=== PATIENT | male | born 2000 | race Caucasian/White ===

== ENCOUNTER 2021-03-15 22:06 | Inpatient (IN) ==
--- NOTE | 2021-03-15 22:24 | Emergency Department Note ---
History of Present Illness General Chief complaint: Alcohol Intoxication Stated complaint: ALCOHOL INTOXICATION History of Present Illness This 20-year-old presents to the ER complaining of overdose of alcohol and benzos reportedly Location: Generalized Quality: Intoxicated Severity: Moderate Duration: Tonight Timing: Tonight Context: Patient was passed out of at the [employer] [facility] and EMS was summoned Modifying factors: better with nothing; worse with nothing Patient is passed out and history is obtained from nursing and EMS. Apparently the patient stated that he took a lot of benzos and was drinking alcohol tonight. No one else has any other information to offer. Patient is passed out and there is no family or friends around. Home Medications Medication Instructions Recorded Confirmed Type Unobtainable 03/15/21 03/15/21 History Allergies Allergy/AdvReac Type Severity Reaction Status Date / Time Unable to Assess Allergy Verified 03/15/21 22:30 Review of Systems Unobtainable due to reduced consciousness Physical Exam Vital Signs Vital Signs - 24 hr 03/15/21 22:11 03/15/21 22:15 03/15/21 22:26 Pulse Rate 99 H 102 H Pulse Rate from SpO2 Sensor 99 H Respiratory Rate 24 27 H Respiratory Effort / Characteristics Non-Labored Spontaneous Respiratory Depth Normal Blood Pressure 108/51 L 108/51 L Blood Pressure Mean 70 70 Pulse Oximetry 93 96 96 Oxygen Delivery Method Room Air Room Air Oxygen Flow Rate Sepsis New/Unexplained Change in Mental Status No Sepsis Action Taken by Nursing No Action Required 03/15/21 22:30 03/15/21 23:00 03/15/21 23:16 Pulse Rate 97 H 90 Pulse Rate from SpO2 Sensor 95 H 90 Respiratory Rate 24 24 Respiratory Effort / Characteristics Respiratory Depth Blood Pressure 104/55 L 105/51 L Blood Pressure Mean 71 69 Pulse Oximetry 93 94 94 Oxygen Delivery Method Room Air Room Air Room Air Oxygen Flow Rate Sepsis New/Unexplained Change in Mental Status Sepsis Action Taken by Nursing 03/15/21 23:30 03/16/21 00:00 03/16/21 00:30 Pulse Rate 85 95 H 91 H Pulse Rate from SpO2 Sensor 85 94 H 91 H Respiratory Rate 22 17 16 Respiratory Effort / Characteristics Respiratory Depth Blood Pressure 111/60 117/63 131/89 Blood Pressure Mean 77 81 103 Pulse Oximetry 96 97 100 Oxygen Delivery Method Room Air Room Air Room Air Oxygen Flow Rate Sepsis New/Unexplained Change in Mental Status Sepsis Action Taken by Nursing 03/16/21 01:00 03/16/21 01:31 03/16/21 02:00 Pulse Rate 102 H 114 H 84 Pulse Rate from SpO2 Sensor 103 H 114 H 84 Respiratory Rate 18 23 20 Respiratory Effort / Characteristics Respiratory Depth Blood Pressure 150/91 H 146/64 H 125/69 Blood Pressure Mean 110 91 87 Pulse Oximetry 100 98 97 Oxygen Delivery Method Room Air Room Air Nasal Cannula Oxygen Flow Rate 2 Sepsis New/Unexplained Change in Mental Status Sepsis Action Taken by Nursing VITALS: Vitals are noted on the nurse's note and reviewed by myself. Vital signs stable. GENERAL: White male passed out moans to sternal rub, in no acute distress, nondiaphoretic, well-developed well-nourished. SKIN: The skin was without rashes, erythema, edema, or bruising. There is no tenting of the skin. Capillary reflex less than 2 seconds. HEAD: Normocephalic atraumatic. EARS: External auditory canals clear, tympanic membranes pearly burks without erythema or effusion bilaterally. EYES: Pupils equal round and reactive to light and accommodation. Conjunctivae with injection, sclerae without icterus. Extraocular movements intact. NOSE: Patent, turbinates without inflammation or discharge. No sinus tend erness. MOUTH: Mucous membranes moist. Pharynx without erythema or exudate. Uvula midline. Airway patent. Tongue does not deviate. NECK: Supple without nuchal rigidity. No lymphadenopathy. No thyromegaly. Cervical spine is nontender. No JVD. HEART: Regular rate and rhythm without murmurs gallops or rubs. LUNGS: Clear to auscultation bilaterally without wheezes, rales or rhonchi. No retractions or accessory muscle use. ABDOMEN: Positive bowel sounds x 4. Normal tympanic percussion. Soft, nontender, without masses or organomegaly. Edwards sign negative. No guarding or rebound tenderness. No CVA tenderness MUSCULOSKELETAL: No muscle atrophy, erythema, or edema noted. NEURO: Patient was passed out who moans to sternal rub.. No focal neurological deficits. Course Administered Medications Sodium Chloride (Nss 1000ml) 1,000 mls @ 999 mls/hr IV .Q1H1M ONE Stop: 03/16/21 05:29 Last Admin: 03/16/21 04:43 Dose: 999 mls/hr Documented by: [id number] Discontinued Medications Sodium Chloride (Nss 1000ml) 1,000 mls @ 999 mls/hr IV .Q1H1M ONE Stop: 03/16/21 04:21 Last Infusion: 03/16/21 04:40 Dose: 0 mls/hr Documented by: [id number] Admin: 03/16/21 03:33 Dose: 999 mls/hr Documented by: [id number] Medical Decision Making Medical Records Attestation: I reviewed the patient's medical records. Home Medications Current Medication List: was personally reviewed by me Laboratory Data Attestation: I reviewed the patient's lab results. Result diagrams: 03/15/21 22:39 03/15/21 22:39 Lab Results 03/15/21 03/15/21 03/15/21 Range/Units 22:39 22:39 22:39 WBC 7.30 (4.8-10.8) K/uL RBC 4.76 (4.7-6.1) M/uL Hgb 15.2 (14.0-18.0) g/dL Hct 44.1 (42-52) % MCV 92.6 (80-100) fL MCH 31.9 (25-34) pg MCHC 34.5 (32-36) g/dL RDW Std Deviation 43.9 (36.4-46.3) fL RDW Coeff of Dejuan 12.9 (11.5-14.5) % Plt Count 336 (130-400) K/uL MPV 9.9 (7.4-10.4) fL Immature Gran % (Auto) 0.1 % Neut % (Auto) 53.4 % Lymph % (Auto) 37.8 % [place] % (Auto) 8.4 % Eos % (Auto) 0.0 % Baso % (Auto) 0.3 % Neut # (Auto) 3.90 (1.4-6.5) K/uL Lymph # (Auto) 2.76 (1.2-3.4) K/uL [place] # (Auto) 0.61 H (0.11-0.59) K/uL Eos # (Auto) 0.00 (0-0.5) K/uL Baso # (Auto) 0.02 (0-0.2) K/uL Immature Gran # (Auto) 0.01 (0.00-0.02) K/uL Sodium 142 (136-145) mmol/L Potassium 3.7 (3.5-5.1) mmol/L Chloride 107 (98-107) mmol/L Carbon Dioxide 22 (21-32) mmol/L Anion Gap 14.0 H (3-11) BUN 10 (7-18) mg/dl Creatinine 1.10 (0.6-1.4) mg/dl Est Cr Clr Drug Dosing Not Reportable Est GFR ( Amer) 111.4 ml/min Est GFR (Non-Af Amer) 96.1 ml/min BUN/Creatinine Ratio 9.4 L (10-20) Glucose 88 (70-99) mg/dl Calcium 9.3 (8.5-10.1) mg/dl Total Bilirubin 0.5 (0.2-1) mg/dl AST 46 H (15-37) U/L ALT 85 H (12-78) U/L Alkaline Phosphatase 91 (45-117) U/L Total Protein 8.2 (6.4-8.2) gm/dl Albumin 4.1 (3.4-5.0) gm/dl Globulin 4.1 H (2.5-4.0) gm/dl Albumin/Globulin Ratio 1.0 (0.9-2) Salicylates (2.8-20) mg/dl Urine Opiates Screen (Neg) Ur Methadone, Qual (Neg) Acetaminophen (10-30) ug/ml Urine Barbiturates (Neg) Ur Phencyclidine (PCP) (Neg) U Amphetamin/Meth Scrn (Neg) MDMA (Ecstasy) Screen (Neg) U Benzodiazepines Scrn (Neg) Ur Cocaine Metabolite (Neg) U Marijuana (THC) Screen (Neg) Ethyl Alcohol mg/dL 183.3 H (0-3) mg/dl COVID-19 Eval Order SARS-CoV-2 (PCR) (Negative) 03/15/21 03/16/21 03/16/21 Range/Units 22:39 02:20 02:20 WBC (4.8-10.8) K/uL RBC (4.7-6.1) M/uL Hgb (14.0-18.0) g/dL Hct (42-52) % MCV (80-100) fL MCH (25-34) pg MCHC (32-36) g/dL RDW Std Deviation (36.4-46.3) fL RDW Coeff of Dejuan (11.5-14.5) % Plt Count (130-400) K/uL MPV (7.4-10.4) fL Immature Gran % (Auto) % Neut % (Auto) % Lymph % (Auto) % [place] % (Auto) % Eos % (Auto) % Baso % (Auto) % Neut # (Auto) (1.4-6.5) K/uL Lymph # (Auto) (1.2-3.4) K/uL [place] # (Auto) (0.11-0.59) K/uL Eos # (Auto) (0-0.5) K/uL Baso # (Auto) (0-0.2) K/uL Immature Gran # (Auto) (0.00-0.02) K/uL Sodium (136-145) mmol/L Potassium (3.5-5.1) mmol/L Chloride (98-107) mmol/L Carbon Dioxide (21-32) mmol/L Anion Gap (3-11) BUN (7-18) mg/dl Creatinine (0.6-1.4) mg/dl Est Cr Clr Drug Dosing Est GFR ( Amer) ml/min Est GFR (Non-Af Amer) ml/min BUN/Creatinine Ratio (10-20) Glucose (70-99) mg/dl Calcium (8.5-10.1) mg/dl Total Bilirubin (0.2-1) mg/dl AST (15-37) U/L ALT (12-78) U/L Alkaline Phosphatase (45-117) U/L Total Protein (6.4-8.2) gm/dl Albumin (3.4-5.0) gm/dl Globulin (2.5-4.0) gm/dl Albumin/Globulin Ratio (0.9-2) Salicylates < 1.7 L (2.8-20) mg/dl Urine Opiates Screen (Neg) Ur Methadone, Qual (Neg) Acetaminophen < 2 L (10-30) ug/ml Urine Barbiturates (Neg) Ur Phencyclidine (PCP) (Neg) U Amphetamin/Meth Scrn (Neg) MDMA (Ecstasy) Screen (Neg) U Benzodiazepines Scrn (Neg) Ur Cocaine Metabolite (Neg) U Marijuana (THC) Screen (Neg) Ethyl Alcohol mg/dL (0-3) mg/dl COVID-19 Eval Order Covid19 at [facility] SARS-CoV-2 (PCR) NEGATIVE (Negative) 03/16/21 Range/Units 04:26 WBC (4.8-10.8) K/uL RBC (4.7-6.1) M/uL Hgb (14.0-18.0) g/dL Hct (42-52) % MCV (80-100) fL MCH (25-34) pg MCHC (32-36) g/dL RDW Std Deviation (36.4-46.3) fL RDW Coeff of Dejuan (11.5-14.5) % Plt Count (130-400) K/uL MPV (7.4-10.4) fL Immature Gran % (Auto) % Neut % (Auto) % Lymph % (Auto) % [place] % (Auto) % Eos % (Auto) % Baso % (Auto) % Neut # (Auto) (1.4-6.5) K/uL Lymph # (Auto) (1.2-3.4) K/uL [place] # (Auto) (0.11-0.59) K/uL Eos # (Auto) (0-0.5) K/uL Baso # (Auto) (0-0.2) K/uL Immature Gran # (Auto) (0.00-0.02) K/uL Sodium (136-145) mmol/L Potassium (3.5-5.1) mmol/L Chloride (98-107) mmol/L Carbon Dioxide (21-32) mmol/L Anion Gap (3-11) BUN (7-18) mg/dl Creatinine (0.6-1.4) mg/dl Est Cr Clr Drug Dosing Est GFR ( Amer) ml/min Est GFR (Non-Af Amer) ml/min BUN/Creatinine Ratio (10-20) Glucose (70-99) mg/dl Calcium (8.5-10.1) mg/dl Total Bilirubin (0.2-1) mg/dl AST (15-37) U/L ALT (12-78) U/L Alkaline Phosphatase (45-117) U/L Total Protein (6.4-8.2) gm/dl Albumin (3.4-5.0) gm/dl Globulin (2.5-4.0) gm/dl Albumin/Globulin Ratio (0.9-2) Salicylates (2.8-20) mg/dl Urine Opiates Screen Neg (Neg) Ur Methadone, Qual Neg (Neg) Acetaminophen (10-30) ug/ml Urine Barbiturates Neg (Neg) Ur Phencyclidine (PCP) Neg (Neg) U Amphetamin/Meth Scrn Neg (Neg) MDMA (Ecstasy) Screen Neg (Neg) U Benzodiazepines Scrn Pos H (Neg) Ur Cocaine Metabolite Pos H (Neg) U Marijuana (THC) Screen Neg (Neg) Ethyl Alcohol mg/dL (0-3) mg/dl COVID-19 Eval Order SARS-CoV-2 (PCR) (Negative) Imaging Data Attestation: I personally reviewed and interpreted this imaging study as follows: MDM Narrative Prior records/ancillary studies reviewed. Triage Nursing notes reviewed. Additional history obtained from nursing. The patient's history was concerning for altered mental status and probable overdose. Differential diagnosis: Etiologies such as toxicologic, infection, hypoglycemia, electrolyte abnormalities, cardiac sources, intracerebral event, neurologic, as well as others were entertained. Physical examination: The patient had altered sensorium. No trauma noted. ER treatment provided: IV NSS 1 L bolus An order was placed for continuous cardiac monitoring. The monitor shows a rate of 60-1 50 with a sinus rhythm. On reassessment the patient was stable and improving. Diagnostic interpretation by me: The electrocardiogram was negative for pathologic change. There was no QRS widening or interval prolongation. Normal sinus, normal intervals, no acute ST- T wave changes. Impression normal sinus interpreted by myself Order for overdose I think arrhythmia is unlikely. EKG shows normal sinus rhythm with no interval abnormalities such as QT prolongation or WPW. There are no findings to suggest Brugada syndrome. Cardiac monitoring in the emergency department reveals no tachycardic or bradycardic dysrhythmia. Hypertrophic cardiomyopathy was considered but there are no clear historical elements pointing toward this. EKG is not suggestive. The QRS voltage is not extremely large and there are no suggestive Q waves. The labs revealed no leukocytosis, negative Tylenol and salicylate Alcohol 183 Imaging studies: Chest x-ray with no acute consolidation, pneumothorax or free air per my interpretation Consultation: A consultation was placed with Poison Control. The recommendations were for observation and supportive care A consultation was placed with the hospitalist. The case was discussed and diagnostics were reviewed. The patient was evaluated in the ER for further treatment. This appears to be consistent with an isolated overdose. Patient had suicidal thoughts. He states this is why he took the medicine. Medicine was consulted. He will be evaluated by the hospitalist. manager of selection and assessment was notified. By the evaluation outlined above emergent etiologies such as infection, hypoglycemia, electrolyte abnormalities, cardiac sources, intracerebral event, neurologic,as well as others were deemed relatively unlikely. Patient apparently made statements to the nurse that he had thoughts of hurting himself and myself. The pt informed about the findings as listed above. All questions were answered and pleased with the treatment. The chart was completed utilizing [employer] Speech voice recognition software. Grammatical errors, random word insertions, pronoun errors, and incomplete sentences are an occassional consequence of this system due to software limitations, ambient noise, and hardware issues. Any formal questions or concerns about the content, text, or information contained within the body of this dictation should be directly addressed to the physician assisted living assistant for clarification. Impression & Plan Alcoholic intoxication, Benzodiazepine overdose, Suicidal thoughts Discharge Plan Visit Data Chief Complaint: Alcohol Intoxication Stated Complaint: ALCOHOL INTOXICATION ED Provider: Guillermo Perla ED Midlevel Provider: Jael Sanchez Discharge Problem: Alcoholic intoxication, Benzodiazepine overdose, Suicidal thoughts Patient Disposition: Admitted As Inpatient Condition: Good Forms Stand Alone Forms: NuORDER Prescriptions Prescriptions: No Action Unobtainable RF: 0 Referrals Referrals: PCP,NO [Primary Care Provider] - Discharge Problem: Alcoholic intoxication Qualifiers: Complication of substance-induced condition: uncomplicated Qualified Code(s): F10.920 - Alcohol use, unspecified with intoxication, uncomplicated
[2021-03-15 22:50] LABS: Basophils # (auto) 0.02 K/uL (0-0.2); Basophils % (auto) 0.3 %; Hematocrit (blood only) 44.1 % (42-52); Hemoglobin 15.2 g/dL (14.0-18.0); Immature Granulocytes # (auto) 0.01 K/uL (0.00-0.02); Immature Granulocytes % (auto) 0.1 %; Lymphocytes # (auto) 2.76 K/uL (1.2-3.4); Lymphocytes % (auto) 37.8 %; Mean Corpuscular Hemoglobin 31.9 pg (25-34); Mean Corpuscular Hgb Conc 34.5 g/dL (32-36); Mean Corpuscular Volume 92.6 fL (80-100); Mean Platelet Volume 9.9 fL (7.4-10.4); Monocytes # (auto) 0.61 K/uL (0.11-0.59); Monocytes % (auto) 8.4 %; Neutrophils % (auto) 53.4 %; Platelet Count 336 K/uL (130-400); RDW Coefficient of Variation 12.9 % (11.5-14.5); RDW Standard Deviation 43.9 fL (36.4-46.3); Red Blood Count 4.76 M/uL (4.7-6.1)
[2021-03-15 23:10] LABS: Alanine Aminotransferase 85 U/L (12-78); Albumin Level 4.1 gm/dl (3.4-5.0); Aspartate Aminotransferase 46 U/L (15-37); BUN Creatinine Ratio 9.4 (10-20); Blood Urea Nitrogen 10 mg/dl (7-18); Calcium 9.3 mg/dl (8.5-10.1); Carbon Dioxide 22 mmol/L (21-32); Chloride 107 mmol/L (98-107); Est GFR (African American) 111.4 ml/min; Est GFR (Non-African American) 96.1 ml/min; Glucose 88 mg/dl (70-99); Potassium 3.7 mmol/L (3.5-5.1); Sodium 142 mmol/L (136-145)
[2021-03-15 23:13] LABS: Alkaline Phosphatase 91 U/L (45-117); Bilirubin,Total 0.5 mg/dl (0.2-1); Globulin 4.1 gm/dl (2.5-4.0); Total Protein 8.2 gm/dl (6.4-8.2)
[2021-03-15 23:28] LABS: Acetaminophen < 2 ug/ml (10-30); Salicylate < 1.7 mg/dl (2.8-20)
[2021-03-16] MEDS ORDERED: SODIUM CHLORIDE 0.9% 1000ML 1,000 ML IV ONE ×2 (03:21→04:29)
[2021-03-16 04:56] LABS: Amphetamines+Metham, Urine Neg (Neg); Barbiturates, Urine Neg (Neg); Benzodiazepine, Urine Pos (Neg); Cocaine, Urine Pos (Neg); MDMA (Ecstacy), Urine Neg (Neg); Methadone, Urine Neg (Neg); Opiate, Urine Neg (Neg); Phencyclidine, Urine Neg (Neg)
--- NOTE | 2021-03-16 05:46 | History & Physical Report ---
Date of Service March 16, 2021 Assessment & Plan (1) Confusion and disorientation: Plan: Confusion and disorientation/preceded by episode of unresponsiveness- The patient will be admitted to telemetry for serial cardiac enzymes, serial EKG's, cardiac rhythm monitoring and a 2-D echocardiogram with Dopplers. Urine drug screen positive for cocaine use, and benzodiazepine use. Alcohol level was 183.3, with normal being less than 3. Continue IV fluid rehydration (2) Cocaine use: Plan: See above Do not use beta-blockers in this patient (3) Abnormal LFTs: (4) Alcoholic intoxication: Plan: See above (5) Benzodiazepine overdose: Plan: See above (6) Suicidal thoughts: Plan: One-to-one observation Consult psychiatry History of Present Illness Chief Complaint: The patient is brought to the emergency department due to concerns regarding overdose of alcohol and benzodiazepines, as reported by his friend. 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 The patient did gradually regain some responsiveness during emergency department stay, however, he continued to be lethargic and confused and disoriented. Laboratories performed: Normal CBC with differential. Chemistry profile normal except for AST 46 and ALT 85. Alcohol level was 183.3 Urine drug screen was positive for benzodiazepines and cocaine, with confirmatory test pending. Patient did receive 1 L of normal saline from the ED Patient's father did arrive while patient was still in the ED, and was agreeable to having the patient be admitted to the medical service, with with psychiatry consult, and hopes to be able to take his son back home to inpatient psychiatry closer to their home in [place] Allergies Allergy/AdvReac Type Severity Reaction Status Date / Time Unable to Assess Allergy Verified 03/15/21 22:30 Home Medications Medication Instructions Recorded Confirmed Type Unobtainable 03/15/21 03/15/21 History Review of Systems Review of Systems: The patient is not able to contribute significantly to his HPI or review of systems due to confusion Physical Exam Physical Exam: The patient is initially lethargic and unresponsive, well developed and well nourished, normocephalic and atraumatic, lying in bed and in no acute distress. HEENT--PERRL, EOMI, mucous membranes and oropharynx dry. Neck--supple. No JVD. No bruits. Thyroid normal, trachea midline, no adenopathy. Heart--normal S1 and S2. No murmurs, rubs or gallops. Lungs--clear bilaterally, no respiratory distress, no accessory muscle use. Abdomen--normal bowel sounds and soft. Nontender. Nondistended, no hernias or masses, no organomegaly. Extremities--no cyanosis or clubbing. No edema. Dermatologic--normal skin turgor, normal color, no abnormal lymph nodes, no rash. Neurologic--cranial nerves II through XII grossly intact. Rheumatologic--limited exam Psychiatric--unresponsive at the time of my exam. Results & Data Results & Data ([facility]) Vital Signs (Past 12 Hours) Vital Signs Pulse Resp BP Pulse Ox 03/16/21 05:02 109 H 20 150/91 H 98 03/16/21 04:32 77 12 100 03/16/21 04:01 12 135/77 100 03/16/21 03:30 71 12 112/65 100 03/16/21 03:00 81 10 L 120/60 97 03/16/21 02:30 78 12 124/66 97 03/16/21 02:00 84 20 125/69 97 03/16/21 01:31 114 H 23 146/64 H 98 03/16/21 01:00 102 H 18 150/91 H 100 03/16/21 00:30 91 H 16 131/89 100 03/16/21 00:00 95 H 17 117/63 97 03/15/21 23:30 85 22 111/60 96 03/15/21 23:16 94 03/15/21 23:00 90 24 105/51 L 94 03/15/21 22:30 97 H 24 104/55 L 93 03/15/21 22:26 96 03/15/21 22:15 102 H 27 H 108/51 L 96 03/15/21 22:11 99 H 24 108/51 L 93 Laboratory Results Laboratory Results WBC 7.30 K/uL (4.8-10.8) 03/15/21 22:39 RBC 4.76 M/uL (4.7-6.1) 03/15/21 22:39 Hgb 15.2 g/dL (14.0-18.0) 03/15/21 22:39 Hct 44.1 % (42-52) 03/15/21 22:39 MCV 92.6 fL (80-100) 03/15/21 22:39 MCH 31.9 pg (25-34) 03/15/21 22:39 MCHC 34.5 g/dL (32-36) 03/15/21 22:39 RDW Std Deviation 43.9 fL (36.4-46.3) 03/15/21 22:39 RDW Coeff of Dejuan 12.9 % (11.5-14.5) 03/15/21 22:39 Plt Count 336 K/uL (130-400) 03/15/21 22:39 MPV 9.9 fL (7.4-10.4) 03/15/21 22:39 Immature Gran % (Auto) 0.1 % 03/15/21 22:39 Neut % (Auto) 53.4 % 03/15/21 22:39 Lymph % (Auto) 37.8 % 03/15/21 22:39 [place] % (Auto) 8.4 % 03/15/21 22:39 Eos % (Auto) 0.0 % 03/15/21 22:39 Baso % (Auto) 0.3 % 03/15/21 22:39 Neut # (Auto) 3.90 K/uL (1.4-6.5) 03/15/21 22:39 Lymph # (Auto) 2.76 K/uL (1.2-3.4) 03/15/21 22:39 [place] # (Auto) 0.61 K/uL (0.11-0.59) H 03/15/21 22:39 Eos # (Auto) 0.00 K/uL (0-0.5) 03/15/21 22:39 Baso # (Auto) 0.02 K/uL (0-0.2) 03/15/21 22:39 Immature Gran # (Auto) 0.01 K/uL (0.00-0.02) 03/15/21 22:39 Sodium 142 mmol/L (136-145) 03/15/21 22:39 Potassium 3.7 mmol/L (3.5-5.1) 03/15/21 22:39 Chloride 107 mmol/L (98-107) 03/15/21 22:39 Carbon Dioxide 22 mmol/L (21-32) 03/15/21 22:39 Anion Gap 14.0 (3-11) H 03/15/21 22:39 BUN 10 mg/dl (7-18) 03/15/21 22:39 Creatinine 1.10 mg/dl (0.6-1.4) 03/15/21 22:39 Est Cr Clr Drug Dosing Not Reportable 03/15/21 22:39 Est GFR ( Amer) 111.4 ml/min 03/15/21 22:39 Est GFR (Non-Af Amer) 96.1 ml/min 03/15/21 22:39 BUN/Creatinine Ratio 9.4 (10-20) L 03/15/21 22:39 Glucose 88 mg/dl (70-99) 03/15/21 22:39 Calcium 9.3 mg/dl (8.5-10.1) 03/15/21 22:39 Total Bilirubin 0.5 mg/dl (0.2-1) 03/15/21 22:39 AST 46 U/L (15-37) H 03/15/21 22:39 ALT 85 U/L (12-78) H 03/15/21 22:39 Alkaline Phosphatase 91 U/L (45-117) 03/15/21 22:39 Total Protein 8.2 gm/dl (6.4-8.2) 03/15/21 22:39 Albumin 4.1 gm/dl (3.4-5.0) 03/15/21 22:39 Globulin 4.1 gm/dl (2.5-4.0) H 03/15/21 22:39 Albumin/Globulin Ratio 1.0 (0.9-2) 03/15/21 22:39 Salicylates < 1.7 mg/dl (2.8-20) L 03/15/21 22:39 Urine Opiates Screen Neg (Neg) 03/16/21 04:26 Ur Methadone, Qual Neg (Neg) 03/16/21 04:26 Acetaminophen < 2 ug/ml (10-30) L 03/15/21 22:39 Urine Barbiturates Neg (Neg) 03/16/21 04:26 Ur Phencyclidine (PCP) Neg (Neg) 03/16/21 04:26 U Amphetamin/Meth Scrn Neg (Neg) 03/16/21 04:26 MDMA (Ecstasy) Screen Neg (Neg) 03/16/21 04:26 U Benzodiazepines Scrn Pos (Neg) H 03/16/21 04:26 Ur Cocaine Metabolite Pos (Neg) H 03/16/21 04:26 U Marijuana (THC) Screen Neg (Neg) 03/16/21 04:26 Ethyl Alcohol mg/dL 183.3 mg/dl (0-3) H 03/15/21 22:39 COVID-19 Eval Order Covid19 at [facility] 03/16/21 02:20 SARS-CoV-2 (PCR) NEGATIVE (Negative) 03/16/21 02:20 ECG Additional Comments: IVÁN ISSA ID:[id number] 15-MAR-2021 22:44:48 [facility]- EDSTAT ROUTINE RETRIEVAL Normal sinus rhythm Cannot rule out Anteroseptal infarct , age undetermined Abnormal ECG No previous ECGs available 25mm/s 10mm/mV 150Hz 9.0.9 12SL 241 KARLEE: 11 Referred by: ED Unconfirmed Vent. rate 90 BPM AK interval 186 ms QRS duration 92 ms QT/QTc 362/442 ms P-R-T axes 59 72 31 2000 (20 yr) Male 1lb Room:B4A L Code Status & VTE Plan Code Status Full code VTE Prophylaxis Plan VTE Prophylaxis will be ordered: Yes PG Care Time/CCT Total # of Minutes Spent Total Time Spent with Patient: Total time spent is greater than 50% in coordination of care (as documented) at patient's floor/unit and/or counseling patient: Coding Level of Care Code 17305 Initial Inpt Care Lvl 3 Diagnoses Cocaine use F14.90 Abnormal LFTs R94.5 Confusion and disorientation R41.0 Alcoholic intoxication F10.920 Complication of substance-induced condition: uncomplicated Benzodiazepine overdose T42.4X1A Suicidal thoughts R45.851 (1) Alcoholic intoxication Complication of substance-induced condition: uncomplicated Qualified Code(s): F10.920 - Alcohol use, unspecified with intoxication, uncomplicated
[2021-03-16 06:36] LABS: Creatine Kinase 173 U/L (39-308); Magnesium 2.3 mg/dl (1.8-2.4); Troponin I < 0.015 ng/ml (0-0.045)
[2021-03-16] MEDS ORDERED: ONDANSETRON INJ 2 MG/ML 2 ML VIAL IV PRN (07:17)
--- NOTE | 2021-03-16 08:05 | CT Scan Report ---
HEAD CT NONCONTRAST CT DOSE: 1612.45 mGy.cm HISTORY: Altered mental status. TECHNIQUE: Multiaxial CT images of the head were performed without the use of intravenous contrast. A utomated exposure control was utilized for this study. A dose lowering technique was utilized adheri ng to the principles of ALARA. Comparison: None. Findings: The paranasal sinuses and mastoid air cells are clear. The calvarium and skull base are int act. The ventricles and sulci are within normal limits. There is no mass, hematoma, midline shift, or acute infarct. Impression: No acute intracranial abnormality. ACT 112: Negative or not required by law. Electronically signed by: Ken Meier M.D. 03/16/2021 8:03 AM
--- NOTE | 2021-03-16 09:04 | XRay Report ---
XR chest 1V portable INDICATION: Overdose. TECHNIQUE: Single frontal radiograph of the chest was obtained. Comparison: None available at the time of this dictation. FINDINGS: No lines and tubes are seen. The cardiac apex is oriented to the left. Lungs are underinflated but cl ear. No evidence of pleural effusion or pneumothorax. IMPRESSION: Dextrocardia is noted. No acute abnormalities. ACT 112: Negative or not required by law. Electronically signed by: Jose Luis Bustillos M.D. 03/16/2021 9:03 AM
[2021-03-16] MEDS: PATIENT'S HEIGHT AND/OR WEIGHT NEEDED SCH ×2 (09:08→10:52)
[2021-03-16] MEDS: PATIENT'S ALLERGY INFO NEEDS ENTERED SCH ×3 (09:08→10:53)
--- NOTE | 2021-03-16 11:13 | XCELERA ---
[id number] [email or web address]\[id number]
[2021-03-16] MEDS: NSS + 20MEQ KCL 20 MEQ/1,000 ML BAG IV SCH ×2 (12:04→22:59)
--- NOTE | 2021-03-16 12:58 | Psychiatric Consultation ---
Date of Consultation March 16, 2021 Impression / Recommendations Impression 20 yo man with history of depression presented with intentional polysubstance overdose. Diagnostically consistent with acute encephalopathy due to ingestion. During fluctuating moments of clarity told father ingestion was a suicide attempt as he no longer wanted to be alive. Full psychiatric assessment limited by his current delirium but based on assessment he is at high acute risk given suicide attempt and high lethal potential with ongoing confusion. Unclear if he consistently using recreational benzos and typical alcohol use but should monitor for potential withdrawal seizures if he has been consistently using these. Could consider adding haldol prn for delirium but defer to medical team given that he is currently cooperative, though paranoid and guarded, and this could negatively influence QTc so would suggest using only if necessary for behavioral agitation/emergencies for now. (1) Confusion and disorientation: (2) Suicide attempt by benzodiazepine overdose: (3) Encephalopathy acute: -May not leave AMA or without psychiatric clearance -Continue 1:1 -Continue with measures to help with delirium-treating medical causes and providing frequent re-orientation -Consider melatonin 3mg qhs to help with delirium -Consider haldol 2-5 mg IM or IV q4 hours (max dose 20mg via IM or 10mg via IV in 24 hours). 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 Psychiatry consulted by Dr. Veras for risk assessment and appropriate disposition. Chief Complaint "I was playing soccer and got hit in the ankle, I'm fine". History of Present Illness Breezy is sitting on the bed accompanied by his father, Ignacio. Breezy has difficulty recalling his father's name and is oriented to place (hospital), person, month and year but presents with significant confusion and no insight into the events leading up to his hospitalization or why he is here. 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 Is able to engage pleasantly on other topics like the [employer] football schedule and his college major. Collateral information from Ignacio notable for period of clarity early in which Breezy told his father he purposefully took 20 xanax and ingested alcohol as part of a suicide attempt because he "didn't want to wake up" and felt very tired. Breezy denied any depression leading up to the hospitalization during our interview remarking on tangential topics instead about liking his fraternity brothers and how they keep the lawn clean. Past Psychiatric History Previous Psych History: none known but difficult to assess. Per Ignacio apparently possible hx of seeing therapist or psychiatrist in high school for mood symptoms. No known medication trials. Previous Psych Admissions: none known Do You Have Access To A Gun?: No (assessment limited by current delirium) History of Previous Suicide Attempt: No Allergies Allergy/AdvReac Type Severity Reaction Status Date / Time No Known Allergies Allergy Unverified 03/16/21 08:32 Home Medications Medication Instructions Recorded Confirmed Type Unobtainable 03/15/21 03/15/21 History Family History none known Substance Abuse History unable to assess given delirium. UDS positive for benzos, alcohol and cocaine on admission Personal History Living Arrangements: [place] [employer] Employment Status: Student Marital Status: Single Beliefs That Will Affect Care: None Patient History Social History Smoking Status: Current every day smoker Hx Alcohol Use: Yes Alcohol type: beer Hx Substance Use: Yes Preferred Language: Spanish Beliefs That Will Affect Care: None Current Living Situation: Alone Feels Safe at Home: Yes Safety Concerns: Feels Safe At This Time Physical Exam Psychiatric: Orientation: alert, oriented to person, oriented to place and + guarded Apperance: appropriately groomed Eye Contact: + fair eye contact Motor Behavior: no abnormal motor movements Speech: normal rate/rhythm/volume of speech Affect: + constricted affect Mood: + irritable mood Thought Process: + tangential thought process, + looseness of associations and + perseveration Thought Content: + paranoid Suicidal Thoughts: denies suicidal thoughts Homicidal Thoughts: denies homicidal thoughts doesn't appear to be responding to internal stimuli but difficult to fully assess Cognition: remote memory grossly intact; + recent memory not intact and + attention not intact Estimated Intelligence: consistent with education level Insight: + severely impaired insight Judgement: + impaired judgement Vital Signs (Past 24 Hours): Last Vital Signs Pulse 90 10/03/21 06:30 Resp 16 03/16/21 06:30 BP 146/83 H 03/16/21 06:30 Pulse Ox 99 03/16/21 06:30 Review of Systems Unobtainable due to cognitive status Results & Data (PSY) Medications Administered Potassium Chloride/Sodium Chloride (Normal Saline W/20 Meq Kcl) 20 meq in 1,000 mls @ 100 mls/hr IV .Q10H JOHAN Stop: 04/15/21 07:16 Last Admin: 03/16/21 12:04 Dose: 100 mls/hr Documented by: [id number] Coding Level of Care Code 76729 Inpt Consult Level 2 Diagnoses Confusion and disorientation R41.0 Suicide attempt by benzodiazepine overdose T42.4X2A Encephalopathy acute G93.40
[2021-03-16] MEDS ORDERED: HALOPERIDOL LACTATE 5 MG/ML 1 ML VIAL IV PRN (14:56)
--- NOTE | 2021-03-16 16:58 | Hospitalist Progress Note ---
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 Patient reportedly took cocaine, alcohol, and up to 25 Xanax evening of admission, suspected shortly before 10 PM. History on admission limited by encephalopathy/delirium. Acute metabolic encephalopathy due to polysubstance ingestion - Confusion and disorientation/preceded by episode of unresponsiveness -Cardiac enzymes negative, EKG sinus rhythm without prolonged QT, echocardiogram normal with normal LV SF UDS positive for cocaine, benzo. Confirmation pending -Alcohol level was 183.3, with normal being less than 3. -Continue IV fluid rehydration, patient euvolemic on assessment Psychiatry consulted. Patient may not leave AMA without psychiatric clearance, legal paperwork completed. If acute pharmacologic behavioral control for risk of harm to self or others is required Haldol 2 mg IM for moderate agitation, or 5 mg for severe agitation May consider Depakote if persistent or severe agitation, patient doing well with redirection at time of assessment Code vitaliy called after transfer to the ICU bed worsened confusion/disorientation, patient improved with discussion and redirection by provider and patient's father. Behavioral control and redirection greatly assisted by patient's father who is at bedside. Due to patient's poor orientation, poor memory, need for frequent reorientation, and agitation with encephalopathy from polysubstance overdose greatly prefer behavioral control over pharmacological control if possible. Recommend an exception be made to COVID-19 visitation precautions so that patients father be allowed to remain at bedside for assistance with reorientation and behavioral redirection. No leukocytosis Increased anion gap acidosis suspect due to alcohol ketoacidosis, trend CMP CThead:The paranasal sinuses and mastoid air cells are clear. The calvarium and skull base are intact. The ventricles and sulci are within normal limits. There is no mass, hematoma, midline shift, or acute infarct. Continue observation, PCU telemetry (2) Cocaine use: Plan: -See above -Do not use beta-blockers in this patient (3) Abnormal LFTs: Plan: AST 46, ALT 85 Trend CMP Acetaminophen/aspirin negative (4) Alcoholic intoxication: Plan: See above (5) Benzodiazepine overdose: Plan: See above (6) Suicidal thoughts: Plan: As noted above Patient may not leave AMA or without psychiatric clearance - One-to-one, suicide precautions/suicide tray (7) Encephalopathy acute: Plan: As above (8) Suicide attempt by benzodiazepine overdose: Plan: As above Admission and Anticipated Discharge Date Admission Date: March 16, 2021 Subjective Subjective limited by acute delirium/metabolic encephalopathy. Patient requires frequent redirection, intermittently confused at bedside, oriented to name and year only. Seen at bedside with father present. Patient reports that he ingested alcohol, Xanax, and cocaine last night following tailgate libertarian and returning to his friend's house. He reports he thinks he ingested 20-25 Xanax (inconsistent report of this, sometimes reports he took 6 sometimes reports he took 30) that he got from "a yovanny that has that kind of stuff ", not a prescription prescribed to patient. He does report that he has been upset and stressed about internships, and when he took the Xanax he did not intend to wake up, and affirms that he took these with suicidal intent. Difficult to assess her anxiety/depression/HI given fluctuating mental status. Father seen at bedside, reports he is staying in town and knows that Breezy is medically unsafe to leave the hospital at this time, but intends for him to return home for potential treatment? Inpatient treatment closer to [place] once improved. Review of Systems Review of Systems: Unobtainable due to cognitive status Physical Exam Physical Exam: General: Oriented to name and year only. Affect anxious, agitated. Not diaphoretic. Forgetful, requires frequent redirection. Appears ill, nontoxic. HEENT: Atraumatic, normocephalic. Visual acuity and hearing grossly intact. Pupils equal and reactive to light and accommodation. Pulm: CTAB A&P. -wheezes, -rales, -rhonchi. Symmetrical chest rise. No increase work of breathing. No respiratory distress. Cardiac: RRR, -mrg. Radial pulses intact and symmetrical. Abdominal: Nontender, nondistended, soft. BS present. CRANIAL NERVES: II: Pupils equal and reactive, no relative afferent pupillary defect, no VF cuts III, IV, : EOM intact, no gaze preference or deviation, no nystagmus. V: normal sensation in V1, V2, and V3 segments bilaterally VII: no asymmetry, no nasolabial fold flattening VIII: normal hearing to speech IX, X: normal palatal elevation, no uvular deviation XI: Normal head turn bilaterally at rest XII: midline tongue protrusion MOTOR: RUE: 5/5 Shoulder flexion 5/5 Elbow flexion/extension, wrist flexion/extension 5/5 shank boner strength, finger flexion/extension, interosseus LUE: 5/5 Shoulder flexion 5/5 Elbow flexion/extension, wrist flexion/extension 5/5 shank boner strength, finger flexion/extension, interosseus RLE: 5/5 to hip flexion, knee flexion/extension, ankle dorsiflexion/plantarflexion LLE: 5/5 to hip flexion, knee flexion/extension, ankle dorsiflexion/plantarflexion SENSORY: Normal to touch in upper and lower extremities without deficit or asymmetry GAIT: Shaky, tremulous but intact. Results & Data Results & Data ([facility]) Vital Signs (Past 12 Hours) Vital Signs Temp Pulse Pulse Resp BP BP Pulse Ox 03/16/21 12:45 36.6 C 78 18 151/92 H 100 03/16/21 11:30 80 18 140/81 98 03/16/21 08:00 82 18 139/80 99 03/16/21 06:30 90 16 146/83 H 99 03/16/21 06:03 87 11 L 150/87 H 03/16/21 05:31 96 H 24 141/86 H 98 03/16/21 05:02 109 H 20 150/91 H 98 PG Care Time/CCT Total # of Minutes Spent Total Time Spent with Patient: Total time spent is greater than 50% in coordination of care (as documented) at patient's floor/unit and/or counseling patient: Coding Level of Care Code 09425 Subseq Hosp Care Lvl 3 Diagnoses Confusion and disorientation R41.0 Cocaine use F14.90 Abnormal LFTs R94.5 Alcoholic intoxication F10.920 Complication of substance-induced condition: uncomplicated Benzodiazepine overdose T42.4X1A Suicidal thoughts R45.851 Encephalopathy acute G93.40 Suicide attempt by benzodiazepine overdose T42.4X2A (1) Alcoholic intoxication Complication of substance-induced condition: uncomplicated Qualified Code(s): F10.920 - Alcohol use, unspecified with intoxication, uncomplicated
[2021-03-16] MEDS ORDERED: HALOPERIDOL LACTATE 5 MG/ML 1 ML VIAL IM PRN (17:52)
--- NOTE | 2021-03-16 19:51 | Electrocardiogram Report ---
Test Reason : Blood Pressure : / mmHG Vent. Rate : 090 BPM Atrial Rate : 090 BPM P-R Int : 186 ms QRS Dur : 092 ms QT Int : 362 ms P-R-T Axes : 059 072 031 degrees QTc Int : 442 ms Normal sinus rhythm Cannot rule out Anteroseptal infarct , age undetermined Abnormal ECG No previous ECGs available Confirmed by Rm Garcia [id number]) on 03/16/2021 7:51:11 PM Referred By: REFERRED SELF Confirmed By:Rm Garcia
[2021-03-17 05:41] LABS: Basophils # (auto) 0.01 K/uL (0-0.2); Basophils % (auto) 0.2 %; Eosinophils # (auto) 0.14 K/uL (0-0.5); Eosinophils % (auto) 2.3 %; Hematocrit (blood only) 45.4 % (42-52); Hemoglobin 15.3 g/dL (14.0-18.0); Immature Granulocytes # (auto) 0.01 K/uL (0.00-0.02); Immature Granulocytes % (auto) 0.2 %; Lymphocytes # (auto) 2.74 K/uL (1.2-3.4); Lymphocytes % (auto) 45.6 %; Mean Corpuscular Hgb Conc 33.7 g/dL (32-36); Monocytes # (auto) 0.55 K/uL (0.11-0.59); Monocytes % (auto) 9.2 %; Neutrophils # (auto) 2.56 K/uL (1.4-6.5); Neutrophils % (auto) 42.5 %; Platelet Count 285 K/uL (130-400); RDW Coefficient of Variation 12.9 % (11.5-14.5); RDW Standard Deviation 44.9 fL (36.4-46.3); Red Blood Count 4.78 M/uL (4.7-6.1); White Blood Count 6.01 K/uL (4.8-10.8)
[2021-03-17 06:15] LABS: Alanine Aminotransferase 73 U/L (12-78); Albumin Globulin Ratio 0.9 (0.9-2); Albumin Level 3.6 gm/dl (3.4-5.0); Alkaline Phosphatase 88 U/L (45-117); Aspartate Aminotransferase 36 U/L (15-37); BUN Creatinine Ratio 9.3 (10-20); Bilirubin,Total 1.1 mg/dl (0.2-1); Blood Urea Nitrogen 11 mg/dl (7-18); Calcium 8.9 mg/dl (8.5-10.1); Carbon Dioxide 25 mmol/L (21-32); Chloride 112 mmol/L (98-107); Creatinine Clr Calc Pharmacy 107.3 ml/min; Est GFR (African American) 103.4 ml/min; Est GFR (Non-African American) 89.2 ml/min; Globulin 3.8 gm/dl (2.5-4.0); Glucose 73 mg/dl (70-99); Magnesium 2.1 mg/dl (1.8-2.4); Potassium 4.4 mmol/L (3.5-5.1); Sodium 139 mmol/L (136-145); Total Protein 7.4 gm/dl (6.4-8.2); Troponin I < 0.015 ng/ml (0-0.045)
[2021-03-17] MEDS: NSS + 20MEQ KCL 20 MEQ/1,000 ML BAG IV SCH (11:11)
--- NOTE | 2021-03-17 11:54 | Hospitalist Progress Note ---
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 Patient reportedly took cocaine, alcohol, and up to 25 Xanax evening of admission, suspected shortly before 10 PM. History on admission limited by encephalopathy/delirium. Disposition: Patient cognitively nearing baseline, endorses prior and current SI. Patient is currently not safe for discharge, and may not leave the hospital AMA or without psychiatric clearance. Medically improving, anticipate medical clearance to primary psych service likely 03/18. Acute metabolic encephalopathy due to polysubstance ingestion Improved, nearly resolved today - Confusion and disorientation/preceded by episode of unresponsiveness -Cardiac enzymes negative, EKG sinus rhythm without prolonged QT, echocardiogram normal with normal LV SF UDS positive for cocaine, benzo. Confirmation pending -Alcohol level was 183.3, with normal being less than 3. -Continue IV fluid rehydration, patient euvolemic on assessment Psychiatry consulted. Patient may not leave AMA without psychiatric clearance, legal paperwork completed. If acute pharmacologic behavioral control for risk of harm to self or others is required Haldol 2 mg IM for moderate agitation, or 5 mg for severe agitation May consider Depakote if persistent or severe agitation, patient doing well with redirection at time of assessment 03/16: Danny bruks called after transfer to the ICU bed worsened confusion/disor ientation, patient improved with discussion and redirection by provider and patient's father. Behavioral control and redirection greatly assisted by patient's father who is at bedside. Due to patient's poor orientation, poor memory, need for frequent reorientation, and agitation with encephalopathy from polysubstance overdose greatly prefer behavioral control over pharmacological control if possible. Recommend an exception be made to COVID-19 visitation precautions so that patients father be allowed to remain at bedside for assistance with reorientation and behavioral redirection. No leukocytosis Resolved BELEM CThead:The paranasal sinuses and mastoid air cells are clear. The calvarium and skull base are intact. The ventricles and sulci are within normal limits. There is no mass, hematoma, midline shift, or acute infarct. (2) Suicidal thoughts: Plan: As noted above Patient may not leave AMA or without psychiatric clearance - One-to-one, suicide precautions/safety tray (3) Cocaine use: Plan: -See above -Do not use beta-blockers in this patient (4) Abnormal LFTs: Plan: AST 46, ALT 85 on admission, suspect 2/2 acute alcohol ingestion Normalized to 10 Acetaminophen/aspirin negative (5) Alcoholic intoxication: Plan: See above (6) Benzodiazepine overdose: Plan: See above (7) Encephalopathy acute: Plan: As above (8) Suicide attempt by benzodiazepine overdose: Plan: As above Admission and Anticipated Discharge Date Admission Date: March 16, 2021 Yumiko Tijerina is seen at the bedside this morning. He is initially seen at the bedside with his father, is alert and oriented to date, name, city, and place. He reports he has a intermittent memory of the events occurring over the previous 24 hours but feels like he is thinking mostly clearly today, just tired. Patient would like to speak privately, patient's father agreeable to leaving the room so private discussion can be had with Breezy. Patient requests that the conversation be kept confidential, confirms that he did take the admitting medications with the intention to commit suicide. He feels that he is had suicidal ideation/impulse for many years, as early as going into or even before middle school. Reports he saw a counselor once in middle school, but had a very poor therapeutic relationship and has not seek counseling since. Reports his suicidal ideation feels similar as it has previously and is not necessarily worse, although endorses going through some "good and bad "periods. Reports initially going to college initially going to high school seem to be more good periods, but his overall mood and suicidality has worsened throughout senior year. Reports a feeling of hopelessness, and does not think that the feelings can go away. Inquires whether he thinks drinking more alcohol would have caused his overdose to be fatal. Discussed suicidality, underlying mental health support services, and potential options moving forward. Patient agreeable to meet with psychiatry. Understands he is currently not able to leave the hospital AMA. Review of Systems Review of Systems: Constitutional: Denies fever, chills. Endorses fatigue Eyes: Denies vision change ENT: Denies ear pain, sore throat, sinus pain Cardiovascular: Denies Chest pain, chest pressure Respiratory: Denies shortness of breath, cough, difficulty breathing Gastrointestinal: Denies abdominal pain, nausea, vomiting, constipation, diarrhea Musculoskeletal: Denies acute focal weakness, muscle aches/pain, joint aches/pain Integumentary:Denies acute rash Neurological: Denies headache, numbness, tingling Physical Exam Physical Exam: General: Oriented to name, date, place, and city today. Mood "I do not know "affect withdrawn. Thought process linear. Not responding to internal stimuli. Endorses active SI. HEENT: Atraumatic, normocephalic. Visual acuity and hearing grossly intact. Pupils equal and reactive to light and accommodation. Pulm: CTAB A&P. -wheezes, -rales, -rhonchi. Symmetrical chest rise. No increase work of breathing. No respiratory distress. Cardiac: RRR, -mrg. Radial pulses intact and symmetrical. Abdominal: Nontender, nondistended, soft. BS present. Extremities: Moving all extremities equally, sensation to soft touch in hands and ankles grossly intact, radial and PT pulse intact without asymmetry. Results & Data Results & Data ([facility]) Vital Signs (Past 12 Hours) Vital Signs Temp Pulse Pulse Resp BP BP Pulse Ox 03/17/21 08:42 36.5 C 54 L 20 133/87 100 03/17/21 02:43 36.7 C 03/17/21 02:42 51 L 16 129/79 129/79 100 03/17/21 00:06 48 L 18 107/78 100 PG Care Time/CCT Total # of Minutes Spent Total Time Spent with Patient: Total time spent is greater than 50% in coordination of care (as documented) at patient's floor/unit and/or counseling patient: Coding Level of Care Code 11544 Subseq Hosp Care Lvl 3 Diagnoses Confusion and disorientation R41.0 Cocaine use F14.90 Abnormal LFTs R94.5 Alcoholic intoxication F10.920 Complication of substance-induced condition: uncomplicated Benzodiazepine overdose T42.4X1A Suicidal thoughts R45.851 Encephalopathy acute G93.40 Suicide attempt by benzodiazepine overdose T42.4X2A (1) Alcoholic intoxication Complication of substance-induced condition: uncomplicated Qualified Code(s): F10.920 - Alcohol use, unspecified with intoxication, uncomplicated
--- NOTE | 2021-03-17 15:33 | Psychiatric Progress Note ---
Date of Service March 17, 2021 Impression / Recommendations Impression 20 yo man with history of depression presented with intentional polysubstance overdose. Diagnostically consistent with MDD, recurrent, severe vs substance- induced depression. He remains at extremely high acute risk given severity of suicide attempt (high psychological and medical acuity), regret at surviving the attempt, ongoing SI, substance use, chronicity of SI, and hopelessness. Given frequency of alcohol use and recreational benzo use should monitor for potential withdrawal seizures over the next week. Will require inpatient psychiatric hospitalization once medically cleared. He is currently refusing voluntary treatment and is on a 302 warrant currently. (1) Suicide attempt by benzodiazepine overdose: (2) MDD (major depressive disorder), recurrent episode, severe: (3) Substance use disorder: -May not leave AMA or without psychiatric clearance; on a 302 warrant -Continue 1:1 -Continue with measures to help with delirium-treating medical causes and providing frequent re-orientation -Consider melatonin 3mg qhs to help with delirium -Consider haldol 2-5 mg IM or IV q4 hours (max dose 20mg via IM or 10mg via IV in 24 hours). Caution of IV formulation is not FDA-approved and should only be given if pt is on continuous cardiac monitoring due to QTc prolongation potential -Psychiatry will continue to follow Risk Factors Assessment Do You Have Access To A Gun?: No (assessment limited by current delirium) Interval History Identifying Information 20 yo man with history of depression and substance use admitted medically following intentional overdose of polysubstances including benzodiazepines and alcohol. Psychiatry as consulted for risk assessment and appropriate disposition. Chief Complaint "I don't want to be alive anymore, there is no point, I will never feel any different". Review of Systems Notes Denies pain. Eating well. Subjective Subjective Breezy was sitting in bed this afternoon on assessment. He could not recall meeting me yesterday but was able to recall the circumstances leading to his hospitalization. He provided a history of significant depression starting in 12th grade which he reports has been constant since then and worsened during college. He has began experiencing chronic SI in 12th grade which he feels has not gotten better. The only thing that makes him feel "anything" is using substances but even that often causes him to feel worse after a certain point and then all he wants to do is isolate in his room. He remarks that in his ideal work all he would have to do would be stay in his room and get food delivered so he wouldn't need to interact with anyone. He finds school stressful but also states he has enjoyed [employer] and cares a lot about his fraternity brothers. He feels there is no hope and is very regretful that his suicide attempt was not successful. Reports that he has been planning to by suicide for the last month and researched various options but felt taking pills would be the easiest and most painless. States that following the [employer] game while walking home he found someone selling Xanax and that this person had enough pills available (about 24) that he thought this was his opportunity to by suicide. Previously had suicide preparatory behaviors of taking about 4 xanax at once to see what the effect would be. He recalls wrapping himself in his [employer] flag, locking himself in his room and taking all the pills and falling asleep right away. He felt this would be the "perfect" way to and that he would be found wrapped in the flag and surrounded by his friends who care about him. He is unsure how his friends found him in time and got him to help. Reports multiple prior suicide preparatory behaviors and frequently experiencing thoughts of suicide to drink off the road or crash his car. He continues to report significant depressive symptoms including depressed mood, hopelessness, difficulty sleeping, irritability, and ongoing active SI with regret at surviving near-lethal attempt. Pertinent ROS: no known hx of jaison; substance use including cocaine, benzos, stimulants, alcohol, inhalants-no known hx of alcohol withdrawal sx or seizures, hx of blackouts; hx self-harm via cutting in the past; no known family psych hx including no known fam hx of by suicide; has friends who have attempted suicide, none who have by suicide. Physical Exam Psychiatric Orientation: alert and oriented x 3 Apperance: appropriately dressed Eye Contact: good eye contact Motor Behavior: steady gait and station and no abnormal motor movements Speech: normal rate/rhythm/volume of speech Affect: + blunted affect and + irritable affect Mood: + depressed mood and + irritable mood Thought Process: + circumstantial thought process and + looseness of associations Thought Content: reality based without delusions, + hopelessness and + worthlessness active SI Homicidal Thoughts: denies homicidal thoughts Hallucinations: no auditory hallucinations and no visual hallucinations Cognition: recent memory grossly intact and remote memory grossly intact Estimated Intelligence: consistent with education level Insight: + poor insight Judgement: + fair judgement Vital Signs (Past 24 Hours) Last Vital Signs Temp 36.5 C 03/17/21 08:42 Pulse 54 L 03/17/21 08:42 Resp 20 03/17/21 08:42 BP 133/87 03/17/21 08:42 Pulse Ox 100 03/17/21 08:42 Results & Data ([facility]) Laboratory Results Laboratory Results - last 24 hr 03/16/21 03/17/21 03/17/21 20:07 05:22 05:22 WBC 6.01 RBC 4.78 Hgb 15.3 Hct 45.4 MCV 95.0 MCH 32.0 MCHC 33.7 RDW Std Deviation 44.9 RDW Coeff of Dejuan 12.9 Plt Count 285 MPV 10.0 Immature Gran % (Auto) 0.2 Neut % (Auto) 42.5 Lymph % (Auto) 45.6 [place] % (Auto) 9.2 Eos % (Auto) 2.3 Baso % (Auto) 0.2 Neut # (Auto) 2.56 Lymph # (Auto) 2.74 [place] # (Auto) 0.55 Eos # (Auto) 0.14 Baso # (Auto) 0.01 Immature Gran # (Auto) 0.01 Sodium 139 Potassium 4.4 D Chloride 112 H Carbon Dioxide 25 Anion Gap 2.0 L BUN 11 Creatinine 1.17 Est Cr Clr Drug Dosing 107.3 Est GFR ( Amer) 103.4 Est GFR (Non-Af Amer) 89.2 BUN/Creatinine Ratio 9.3 L Glucose 73 Calcium 8.9 Magnesium 2.1 Total Bilirubin 1.1 H D AST 36 ALT 73 Alkaline Phosphatase 88 Troponin I < 0.015 < 0.015 Total Protein 7.4 Albumin 3.6 Globulin 3.8 Albumin/Globulin Ratio 0.9 Current Inpatient Medications Current Inpatient Medications: Current Inpatient Medications Haloperidol Lactate (Haloperidol Lactate 5 Mg/Ml 1 Ml Vial) 2 - 5 mg IM Q6H PRN PRN Reason: severe agitation Stop: 04/15/21 14:55
[2021-03-18 05:21] LABS: Basophils # (auto) 0.01 K/uL (0-0.2); Basophils % (auto) 0.1 %; Eosinophils # (auto) 0.15 K/uL (0-0.5); Eosinophils % (auto) 2.1 %; Hematocrit (blood only) 45.7 % (42-52); Hemoglobin 15.6 g/dL (14.0-18.0); Immature Granulocytes # (auto) 0.01 K/uL (0.00-0.02); Immature Granulocytes % (auto) 0.1 %; Lymphocytes # (auto) 2.97 K/uL (1.2-3.4); Lymphocytes % (auto) 42.2 %; Mean Corpuscular Hemoglobin 32.4 pg (25-34); Mean Corpuscular Hgb Conc 34.1 g/dL (32-36); Mean Corpuscular Volume 94.8 fL (80-100); Mean Platelet Volume 10.3 fL (7.4-10.4); Monocytes # (auto) 0.84 K/uL (0.11-0.59); Monocytes % (auto) 11.9 %; Neutrophils # (auto) 3.05 K/uL (1.4-6.5); Neutrophils % (auto) 43.6 %; Platelet Count 277 K/uL (130-400); RDW Coefficient of Variation 12.8 % (11.5-14.5); RDW Standard Deviation 44.1 fL (36.4-46.3); Red Blood Count 4.82 M/uL (4.7-6.1); White Blood Count 7.03 K/uL (4.8-10.8)
[2021-03-18 05:54] LABS: Albumin Level 3.6 gm/dl (3.4-5.0); BUN Creatinine Ratio 8.2 (10-20); Calcium 9.3 mg/dl (8.5-10.1); Creatinine Clr Calc Pharmacy 105.5 ml/min; Est GFR (African American) 101.3 ml/min; Est GFR (Non-African American) 87.4 ml/min; Magnesium 2.2 mg/dl (1.8-2.4); Potassium 3.9 mmol/L (3.5-5.1)
[2021-03-18 06:16] LABS: Albumin Globulin Ratio 0.9 (0.9-2); Bilirubin,Total 0.6 mg/dl (0.2-1); Globulin 3.8 gm/dl (2.5-4.0); Total Protein 7.4 gm/dl (6.4-8.2)
--- NOTE | 2021-03-18 14:47 | Hospitalist Progress Note ---
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 Patient reportedly took cocaine, alcohol, and up to 25 Xanax evening of admission, suspected shortly before 10 PM. History on admission limited by encephalopathy/delirium. Disposition: Patient cognitively nearing baseline, endorses prior and current SI. Patient is currently not safe for discharge, and may not leave the hospital AMA or without psychiatric clearance. Medically improving, anticipate medical clearance to primary psych service likely 03/18. Acute metabolic encephalopathy due to polysubstance ingestion Improved, nearly resolved today - Confusion and disorientation/preceded by episode of unresponsiveness -Cardiac enzymes negative, EKG sinus rhythm without prolonged QT, echocardiogram normal with normal LV SF UDS positive for cocaine, benzo. Confirmation pending -Alcohol level was 183.3, with normal being less than 3. -Continue IV fluid rehydration, patient euvolemic on assessment Psychiatry consulted. Patient may not leave AMA without psychiatric clearance, legal paperwork completed. If acute pharmacologic behavioral control for risk of harm to self or others is required Haldol 2 mg IM for moderate agitation, or 5 mg for severe agitation May consider Depakote if persistent or severe agitation, patient doing well with redirection at time of assessment 03/16: Danny burks called after transfer to the ICU bed worsened confusion/disor ientation, patient improved with discussion and redirection by provider and patient's father. Behavioral control and redirection greatly assisted by patient's father who is at bedside. Due to patient's poor orientation, poor memory, need for frequent reorientation, and agitation with encephalopathy from polysubstance overdose greatly prefer behavioral control over pharmacological control if possible. Recommend an exception be made to COVID-19 visitation precautions so that patients father be allowed to remain at bedside for assistance with reorientation and behavioral redirection. No leukocytosis Resolved BELEM CThead:The paranasal sinuses and mastoid air cells are clear. The calvarium and skull base are intact. The ventricles and sulci are within normal limits. There is no mass, hematoma, midline shift, or acute infarct. Medically cleared today. Per psych liaison, no bed at 3S for at least 2 days. Starting broader bed search. (2) Suicidal thoughts: Plan: As noted above Patient may not leave AMA or without psychiatric clearance - One-to-one, suicide precautions/safety tray (3) Cocaine use: Plan: -See above (4) Abnormal LFTs: Plan: AST 46, ALT 85 on admission, suspect 2/2 acute alcohol ingestion. Acetaminophen/aspirin negative. Normalized on 03/17 (5) Alcoholic intoxication: Plan: See above (6) Benzodiazepine overdose: Plan: See above (7) Encephalopathy acute: Plan: As above (8) Suicide attempt by benzodiazepine overdose: Plan: As above Plan: SCDs - Low risk for DVT Admission and Anticipated Discharge Date Admission Date: March 16, 2021 Subjective No issues today. Feels well, though still downcast. Physical Exam Constitutional: WD/WN, vitals as above Eyes: EOM intact bilaterally; no conjunctival abnormality ENMT: external ear and nose normal, oropharynx normal Neck: trachea midline, no thyromegaly normal visual inspection Respiratory: normal respiratory effort, lungs clear to auscultation no respiratory distress Cardiovascular: RRR, no murmur, no edema Gastrointestinal (Abdomen): Inspection/Auscultation: abdomen normal to inspection; abdomen not distended Musculoskeletal: no cyanosis or clubbing, extremities motor strength 5/5 Skin: no rashes, warm and dry Neurologic: moves all extremities and awake Psychiatric: Orientation: alert, oriented to person and cooperative Results & Data Results & Data ([facility]) Vital Signs (Past 12 Hours) Vital Signs Temp Pulse Resp BP BP Pulse Ox 03/18/21 11:58 36.7 C 56 L 18 136/85 100 03/18/21 08:51 36.7 C 55 L 18 133/82 100 03/18/21 04:38 36.6 C 48 L 20 139/87 100 PG Care Time/CCT Total # of Minutes Spent Total Time Spent with Patient: Total time spent is greater than 50% in coordination of care (as documented) at patient's floor/unit and/or counseling patient: Coding Level of Care Code 55273 Subseq Hosp Care Lvl 2 Diagnoses Confusion and disorientation R41.0 Suicidal thoughts R45.851 Cocaine use F14.90 Abnormal LFTs R94.5 Alcoholic intoxication F10.920 Complication of substance-induced condition: uncomplicated Benzodiazepine overdose T42.4X1A Encephalopathy acute G93.40 Suicide attempt by benzodiazepine overdose T42.4X2A (1) Alcoholic intoxication Complication of substance-induced condition: uncomplicated Qualified Code(s): F10.920 - Alcohol use, unspecified with intoxication, uncomplicated
--- NOTE | 2021-03-18 16:08 | Psychiatric Progress Note ---
Date of Service March 18, 2021 Impression / Recommendations Impression 20 yo man with history of depression presented with intentional polysubstance overdose. Diagnostically consistent with MDD, recurrent, severe vs substance- induced depression. He remains at high acute risk given severity of suicide attempt (high psychological and medical acuity), substance use, chronicity of SI, though encouragingly today is slightly more hopeful and future-orientated as delirium has fully cleared. Given frequency of alcohol use and recreational benzo use should monitor for potential withdrawal seizures over the next week. Requires inpatient psychiatric hospitalization. (1) Suicide attempt by benzodiazepine overdose: (2) MDD (major depressive disorder), recurrent episode, severe: (3) Substance use disorder: -On 302 commitment status, medically cleared -Continue 1:1 -Consider starting SSRI in 1-2 days if wait for bed placement becomes extended. -Psychiatry will continue to follow Risk Factors Assessment Do You Have Access To A Gun?: No (assessment limited by current delirium) Interval History Identifying Information 20 yo man with history of depression and substance use admitted medically following intentional overdose of polysubstances including benzodiazepines and alcohol. Psychiatry as consulted for risk assessment and appropriate disposition. Chief Complaint "I'm sorry about yesterday". Review of Systems Notes Denies pain, appetite is good. Subjective Subjective Breezy presents as much clearer and calmer today as the delirium has resolved. He apologizes for being frustrated about the idea of inpatient treatment yesterday and asking me to leave. Notes that it came as a bit of a shock time and now that he's had time to process things he understands it will hopefully help him. Answered some questions about the process from here and discussed that if he has to wait for a long time for a bed we can consider starting a medication for depression in the next few days if necessary. He was open to beginning to research some medication options through the [facility] shared decision making aid for antidepressants that I shared with him. Also spoke with patient's father Ignacio who expressed concerns about how the 302 commitment may negatively impact Breezy's future job search/career if it flags items on a background search. Physical Exam Psychiatric Orientation: alert and oriented x 3 Apperance: appropriately dressed and appropriately groomed Eye Contact: good eye contact Motor Behavior: steady gait and station and no abnormal motor movements Speech: normal rate/rhythm/volume of speech Affect: + depressed affect Mood: + depressed mood Thought Process: goal directed thought process Thought Content: reality based without delusions Homicidal Thoughts: denies homicidal thoughts Hallucinations: no auditory hallucinations and no visual hallucinations Estimated Intelligence: consistent with education level Insight: + fair insight Judgement: + fair judgement Vital Signs (Past 24 Hours) Last Vital Signs Temp 36.7 C 03/18/21 11:58 Pulse 56 L 03/18/21 11:58 Resp 18 03/18/21 11:58 BP 136/85 03/18/21 11:58 Pulse Ox 100 03/18/21 11:58 Results & Data ([facility]) Laboratory Results Laboratory Results - last 24 hr 03/18/21 03/18/21 04:33 04:33 WBC 7.03 RBC 4.82 Hgb 15.6 Hct 45.7 MCV 94.8 MCH 32.4 MCHC 34.1 RDW Std Deviation 44.1 RDW Coeff of Dejuan 12.8 Plt Count 277 MPV 10.3 Immature Gran % (Auto) 0.1 Neut % (Auto) 43.6 Lymph % (Auto) 42.2 [place] % (Auto) 11.9 Eos % (Auto) 2.1 Baso % (Auto) 0.1 Neut # (Auto) 3.05 Lymph # (Auto) 2.97 [place] # (Auto) 0.84 H Eos # (Auto) 0.15 Baso # (Auto) 0.01 Immature Gran # (Auto) 0.01 Sodium 142 Potassium 3.9 Chloride 109 H Carbon Dioxide 27 Anion Gap 7.0 BUN 10 Creatinine 1.19 Est Cr Clr Drug Dosing 105.5 Est GFR ( Amer) 101.3 Est GFR (Non-Af Amer) 87.4 BUN/Creatinine Ratio 8.2 L Glucose 85 Calcium 9.3 Magnesium 2.2 Total Bilirubin 0.6 D AST 28 ALT 63 Alkaline Phosphatase 87 Total Protein 7.4 Albumin 3.6 Globulin 3.8 Albumin/Globulin Ratio 0.9 Current Inpatient Medications Current Inpatient Medications: Current Inpatient Medications Haloperidol Lactate (Haloperidol Lactate 5 Mg/Ml 1 Ml Vial) 2 - 5 mg IM Q6H PRN PRN Reason: severe agitation Stop: 04/15/21 14:55
[2021-03-19 00:36] LABS: 7-Aminoclonaz, Confirm NEGATIVE ng/mL (<25); Cocaine, Urine 238 ng/mL (<100); Hydro-Alp Ur, GC/MS NEGATIVE ng/mL (<25); Hydroxyethylflurazepam, Conf NEGATIVE ng/mL (<50); Hydroxymidazolam Ur, GC/MS NEGATIVE ng/mL (<50); Hydroxytriazolam NEGATIVE ng/mL (<50); Lorazepam, Ur GC/MS NEGATIVE ng/mL (<50); Nordiazepam, Confirm NEGATIVE ng/mL (<50); Oxazepam Ur, GC/MS NEGATIVE ng/mL (<50); Temazepam, Confirm NEGATIVE ng/mL (<50)
--- NOTE | 2021-03-19 08:55 | Hospitalist Progress Note ---
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 Patient reportedly took cocaine, alcohol, and up to 25 Xanax evening of admission, suspected shortly before 10 PM. History on admission limited by encephalopathy/delirium. Disposition: Patient cognitively nearing baseline, endorses prior and current SI. Patient is currently not safe for discharge, and may not leave the hospital AMA or without psychiatric clearance. Medically improving, anticipate medical clearance to primary psych service likely 03/18. Acute metabolic encephalopathy due to polysubstance ingestion Improved, nearly resolved today - Confusion and disorientation/preceded by episode of unresponsiveness -Cardiac enzymes negative, EKG sinus rhythm without prolonged QT, echocardiogram normal with normal LV SF UDS positive for cocaine, benzo. Confirmation pending -Alcohol level was 183.3, with normal being less than 3. -Continue IV fluid rehydration, patient euvolemic on assessment Psychiatry consulted. Patient may not leave AMA without psychiatric clearance, legal paperwork completed. If acute pharmacologic behavioral control for risk of harm to self or others is required Haldol 2 mg IM for moderate agitation, or 5 mg for severe agitation May consider Depakote if persistent or severe agitation, patient doing well with redirection at time of assessment 03/16: Danny burks called after transfer to the ICU bed worsened confusion/disor ientation, patient improved with discussion and redirection by provider and patient's father. Behavioral control and redirection greatly assisted by patient's father who is at bedside. Due to patient's poor orientation, poor memory, need for frequent reorientation, and agitation with encephalopathy from polysubstance overdose greatly prefer behavioral control over pharmacological control if possible. Recommend an exception be made to COVID-19 visitation precautions so that patients father be allowed to remain at bedside for assistance with reorientation and behavioral redirection. No leukocytosis Resolved BELEM CThead:The paranasal sinuses and mastoid air cells are clear. The calvarium and skull base are intact. The ventricles and sulci are within normal limits. There is no mass, hematoma, midline shift, or acute infarct. (2) Suicidal thoughts: Plan: As noted above Patient may not leave AMA or without psychiatric clearance - One-to-one, suicide precautions/safety tray (3) Cocaine use: Plan: -See above -Do not use beta-blockers in this patient (4) Abnormal LFTs: Plan: AST 46, ALT 85 on admission, suspect 2/2 acute alcohol ingestion Normalized to 03/17 Acetaminophen/aspirin negative (5) Alcoholic intoxication: Plan: See above (6) Benzodiazepine overdose: Plan: See above (7) Encephalopathy acute: Plan: As above (8) Suicide attempt by benzodiazepine overdose: Plan: As above Admission and Anticipated Discharge Date Admission Date: March 16, 2021 Subjective Attending: Dr. Gutiérrez Results & Data Results & Data ([facility]) Vital Signs (Past 12 Hours) Vital Signs Temp Pulse Pulse Resp BP BP Pulse Ox 03/19/21 07:43 37.1 C 74 20 111/71 97 03/18/21 23:07 37 C 59 L 16 128/79 99 PG Care Time/CCT Total # of Minutes Spent Total Time Spent with Patient: Total time spent is greater than 50% in coordination of care (as documented) at patient's floor/unit and/or counseling patient: Coding Diagnoses Confusion and disorientation R41.0 Suicidal thoughts R45.851 Cocaine use F14.90 Abnormal LFTs R94.5 Alcoholic intoxication F10.920 Complication of substance-induced condition: uncomplicated Benzodiazepine overdose T42.4X1A Encephalopathy acute G93.40 Suicide attempt by benzodiazepine overdose T42.4X2A (1) Alcoholic intoxication Complication of substance-induced condition: uncomplicated Qualified Code(s): F10.920 - Alcohol use, unspecified with intoxication, uncomplicated
--- NOTE | 2021-03-19 14:41 | Psychiatric Progress Note ---
Date of Service March 19, 2021 Impression / Recommendations Impression 20 yo man with history of depression presented with intentional polysubstance overdose. Diagnostically consistent with MDD, recurrent, severe vs substance- induced depression. He remains at high acute risk given severity of suicide attempt (high psychological and medical acuity), substance use, chronicity of SI, though encouragingly is showing more hopefulness and willingness to engage in treatment. Given frequency of alcohol use and recreational benzo use should continue to monitor for potential withdrawal seizures over the next week. Requires inpatient psychiatric hospitalization for diagnostic clarification, medication management, development of coping skills and establishment of outpatient resources. (1) Suicide attempt by benzodiazepine overdose: (2) MDD (major depressive disorder), recurrent episode, severe: (3) Substance use disorder: -On 302 commitment status, medically cleared -Continue 1:1 -Awaiting psychiatric placement -Psychiatry will continue to follow Risk Factors Assessment Do You Have Access To A Gun?: No (assessment limited by current delirium) Interval History Identifying Information 20 yo man with history of depression and substance use admitted medically following intentional overdose of polysubstances including benzodiazepines and alcohol. Psychiatry as consulted for risk assessment and appropriate disposition. Chief Complaint "I'm feeling more hopeful, I want to get better". Review of Systems Notes Denies pain or physical complaints today. Slept well, eating well. Subjective Subjective Patient was seen & assessed with psychiatric liason. Breezy was sitting in bed with his father Ignacio at the bedside and his mother joining via speakerphone. Answered questions about process of waiting for inpatient psychiatric bed and what inpatient treatment tends to be like. Breezy feels he continues to feel more like himself and while he continues to have depression and notes it can be difficult for him to open up about his feelings he is no longer regretful of being alive and has hopefulness that hospitalization can help and that he will feel better. He is understandably anxious about inpatient since he will be away from family and friends and has never been psychiatrically hospitalized before but he expresses understanding of the process and what comes next. Physical Exam Psychiatric Orientation: alert and oriented x 3 Apperance: appropriately dressed Eye Contact: good eye contact Motor Behavior: no abnormal motor movements Speech: normal rate/rhythm/volume of speech Affect: + depressed affect Mood: + anxious mood Thought Process: linear/logical thought process Thought Content: reality based without delusions Cognition: attention grossly intact and language grossly intact Insight: + fair insight Judgement: + fair judgement Vital Signs (Past 24 Hours) Last Vital Signs Temp 37.1 C 03/19/21 07:43 Pulse 74 03/19/21 07:43 Resp 20 03/19/21 07:43 BP 111/71 03/19/21 07:43 Pulse Ox 97 03/19/21 07:43 Results & Data ([facility]) Laboratory Results Laboratory Results - last 24 hr 03/16/21 04:26 U OH-Alprazolam Confrm NEGATIVE 7-Amino Clonazepam NEGATIVE Ur Nordiazepam Confirm NEGATIVE U OH-ethylflurazepam NEGATIVE U Lorazepam Cnf GC/MS NEGATIVE U Oxazepam Confm GC/MS NEGATIVE Ur Temazepam Confirm NEGATIVE U OH-Triazolam Confirm NEGATIVE U OH-Midazolam Confirm NEGATIVE U Cocaine Confirm GC/MS 238 H Drug Screen Comment SEE NOTE Current Inpatient Medications Current Inpatient Medications: Current Inpatient Medications Haloperidol Lactate (Haloperidol Lactate 5 Mg/Ml 1 Ml Vial) 2 - 5 mg IM Q6H PRN PRN Reason: severe agitation Stop: 04/15/21 14:55
--- NOTE | 2021-03-19 15:00 | Discharge Summary ---
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 The patient did gradually regain some responsiveness during emergency department stay, however, he continued to be lethargic and confused and disoriented. Laboratories performed: Normal CBC with differential. Chemistry profile normal except for AST 46 and ALT 85. Alcohol level was 183.3 Urine drug screen was positive for benzodiazepines and cocaine, with confirmatory test pending. Patient did receive 1 L of normal saline from the ED Patient's father did arrive while patient was still in the ED, and was agreeable to having the patient be admitted to the medical service, with with psychiatry consult, and hopes to be able to take his son back home to inpatient psychiatry closer to their home in [place] Admission Exam Per Admitting Provider The patient is initially lethargic and unresponsive, well developed and well nourished, normocephalic and atraumatic, lying in bed and in no acute distress. HEENT--PERRL, EOMI, mucous membranes and oropharynx dry. Neck--supple. No JVD. No bruits. Thyroid normal, trachea midline, no adenopathy. Heart--normal S1 and S2. No murmurs, rubs or gallops. Lungs--clear bilaterally, no respiratory distress, no accessory muscle use. Abdomen--normal bowel sounds and soft. Nontender. Nondistended, no hernias or masses, no organomegaly. Extremities--no cyanosis or clubbing. No edema. Dermatologic--normal skin turgor, normal color, no abnormal lymph nodes, no rash. Neurologic--cranial nerves II through XII grossly intact. Rheumatologic--limited exam Psychiatric--unresponsive at the time of my exam. Principal Diagnosis Multidrug overdose with benzodiazepines and alcohol Discharge Exam GENERAL : No acute distress. Flat affect EYES: No icterus, gaze conjugate. Pupils equal round reactive to light NOSE: No evidence of epistaxis MOUTH: No lesions or candidiasis. Mucosa moist NECK: Supple LUNGS: CTA B/L, no wheezes, rales or rhonchi HEART: Regular, rate controlled. No murmurs gallops or rubs appreciated ABDOMEN: Soft, NT, ND, BS Present EXTREMITIES: No LE edema, pedal pulses intact NEURO: A&OX3. No apparent neurological deficits noted Discharge Data Allergies Allergy/AdvReac Type Severity Reaction Status Date / Time No Known Allergies Allergy Unverified 03/16/21 08:32 Consultations 03/16/21 01:49 ED Decision to Admit Stat 03/16/21 07:17 Consult Psychiatry Routine Ordered Studies Chest X-Ray 03/15/21 23:55 XR chest 1V portable INDICATION: Overdose. TECHNIQUE: Single frontal radiograph of the chest was obtained. Comparison: None available at the time of this dictation. FINDINGS: No lines and tubes are seen. The cardiac apex is oriented to the left. Lungs are underinflated but clear. No evidence of pleural effusion or pneumothorax. IMPRESSION: Dextrocardia is noted. No acute abnormalities. ACT 112: Negative or not required by law. Electronically signed by: Jose Luis Bustillos M.D. 03/16/2021 9:[address] 03/16/21 05:[address] DOSE: 1612.45 mGy.cm HISTORY: Altered mental status. TECHNIQUE: Multiaxial CT images of the head were performed without the use of intravenous contrast. Automated exposure control was utilized for this study. A dose lowering technique was utilized adhering to the principles of ALARA. Comparison: None. Findings: The paranasal sinuses and mastoid air cells are clear. The calvarium and skull base are intact. The ventricles and sulci are within normal limits. There is no mass, hematoma, midline shift, or acute infarct. Impression: No acute intracranial abnormality. ACT 112: Negative or not required by law. Electronically signed by: Ken Meier M.D. 03/16/2021 8:03 AM Hospital Course (1) Confusion and disorientation: Attending: Dr. Gutiérrez Impression: Breezy is a 20-year-old male [place] [employer] student who presented to the emergency department with acute encephalopathy in the setting of polysubstance overdose. Patient reportedly took cocaine, alcohol, and up to 25 Xanax evening of admission, suspected shortly before 10 PM. History on admission limited by encephalopathy/delirium. Disposition: Patient cognitively at baseline, endorses prior and current SI. Patient is currently not safe for discharge, and may not leave the hospital AMA or without psychiatric clearance. Medically stable for discharge. Acute metabolic encephalopathy due to polysubstance ingestion resolved - Confusion and disorientation/preceded by episode of unresponsiveness. No cardiopulmonary resuscitation was performed -Cardiac enzymes negative, EKG sinus rhythm without prolonged QT, echocardiogram normal with normal LV SF UDS positive for cocaine, benzo. -Alcohol level was 183.3, with normal being less than 3. -Patient is euvolemic. IV fluids have been stopped Psychiatry consulted. Patient may not leave AMA without psychiatric clearance, legal paperwork completed. SSRI not started. This should be addressed with inpatient placement 03/16: Danny burks called after transfer to the ICU bed worsened confusion/ disorientation, patient improved with discussion and redirection by provider and patient's father. Behavioral control and redirection greatly assisted by patient's father who is at bedside. Due to patient's poor orientation, poor memory, need for frequent reorientation, and agitation with encephalopathy from polysubstance overdose greatly prefer behavioral control over pharmacological control if possible. Exception made to COVID-19 visitation precautions so that patient's father is able to remain at bedside for assistance with reorientation and behavioral redirection. No leukocytosis Resolved BELEM CThead:The paranasal sinuses and mastoid air cells are clear. The calvarium and skull base are intact. The ventricles and sulci are within normal limits. There is no mass, hematoma, midline shift, or acute infarct. Patient's behavior today is appropriate. Recommend discharge to inpatient facility when a bed is available (2) Suicidal thoughts: As noted above Patient may not leave AMA or without psychiatric clearance - One-to-one, suicide precautions/safety tray (3) Cocaine use: -See above -Do not use beta-blockers in this patient (4) Abnormal LFTs: AST 46, ALT 85 on admission, suspect 2/2 acute alcohol ingestion Normalized 03/17/2021 Acetaminophen/aspirin levels negative (5) Alcoholic intoxication: See above (6) Benzodiazepine overdose: See above (7) Encephalopathy acute: As above (8) Suicide attempt by benzodiazepine overdose: As above Total Time Total Time Spent Total Time Spent (In Minutes): 45 minutes Discharge Plan Discharge Items Patient Disposition: Transfer Behavioral Health Fac Reason For Visit: MULTI-DRUG OVERDOSE Discharge Diagnosis: Multidrug overdose Depression Condition on Discharge: Good Activity: Resume your previous activity Lifting: Gradually increase as tolerated Bathing: No limitations Exercise/Sports: Gradually increase as tolerated Weightbearing: Full weightbearing Non-emergency contact: Primary Care Provider and Psychiatrist Call non-emergency contact if: your symptoms worsen Follow-up/Referrals: PCP,NO [Primary Care Provider] - Diet: Regular Addtl Attending Provider Instructions: You were admitted due to depression and overdose of benzodiazepines. You are being discharged to an inpatient behavioral health facility. Please follow all instructions as provided by that staff. You should follow-up with your primary care provider on discharge as well as any mental health professionals as prescribed at that time. Pending Studies at Discharge: No Stand-Alone Forms: [facility] Medications and DC Order Prescriptions: No Action Unobtainable RF: 0 Discharge Orders: Discharge Order (Routine); Ordered 03/19/21 Ordered By: Jorge Guzmán Admission Data Admit Date/Time: 03/16/21 05:45 Attending Provider: Stewart Gonzalez Admit Provider: Johan Veras Primary Care Provider: PCP,NO Other Providers: Stewart Gonzalez ; Johan Veras ; Michelle Dos Santos ; Valencia Pappas ; Parris Saunders ; Koby Wells Supervising Physician Co-Signing Physician Notes Patient seen and examined at bedside. I performed a phsycial exam and discussed hospital course with patient. I answered the patient's questions and discussed plan of care with ALYCE Guzmán. I reviewed above note and agree with it. Patient was admitted with multi-drug overdose. Patient will be transferred to a behavior health unit. Coding Level of Care Code D/C DAY MANAGEMENT >30 MINS Diagnoses Confusion and disorientation R41.0 Suicidal thoughts R45.851 Cocaine use F14.90 Abnormal LFTs R94.5 Alcoholic intoxication F10.920 Complication of substance-induced condition: uncomplicated Benzodiazepine overdose T42.4X1A Encephalopathy acute G93.40 Suicide attempt by benzodiazepine overdose T42.4X2A Time Spent (min) 45
== END 2021-03-19 19:06 | DRG 917 ==
LOC: ED 22:06 → EDINP 03-16 05:45 → SUATTDRO 03-16 05:45 → 1E 03-16 12:46 → 3N 03-18 14:44